=== PATIENT | female | born 1950 | race Caucasian/White ===

== ENCOUNTER 2018-09-13 06:13 | Day surgery (SDC) ==
[2018-09-13] MEDS: BETADINE OPTH PREP OP PRN ×2 (06:20→07:36)
[2018-09-13] MEDS: TETRACAINE 0.5% UNIT-DOSE OP PRN ×2 (06:20→07:35)
[2018-09-13] MEDS: CYCLOGYL 2% OPTH OP PRN ×3 (06:21→06:32)
[2018-09-13] MEDS ORDERED: BSS WITH EPINEPHRINE OP ONE (06:30)
[2018-09-13] MEDS ORDERED: ZOFRAN 4 MG/2 ML IVP ONE (06:30)
[2018-09-13] MEDS ORDERED: LIDOCAINE 1%/PHENYLEPHRINE 1.5% BSS (SURGERY) INTRAOCULA ONE (06:30)
[2018-09-13] MEDS ORDERED: DEX-MOXI-KETOR OPTH INJ 1/0.5/0.4 MG/ML IO ONE (06:30)
[2018-09-13 06:39] VITALS: TEMP 97.6
[2018-09-13] MEDS ORDERED: ZOFRAN 4 MG/2 ML ONE (07:45)
[2018-09-13] MEDS ORDERED: SUBLIMAZE ONE (07:45)
[2018-09-13] MEDS ORDERED: VERSED ONE (07:45)
[2018-09-13 08:36] VITALS: BP 118/65
== END 2018-09-13 08:29 | disposition home or self-care (01) ==
LOC: SURG 06:13
PROVIDERS: ATTEND Ophthalmology
DX: H25.811 Combined forms of age-related cataract, right eye (principal)

== ENCOUNTER 2018-09-27 08:02 | Day surgery (SDC) ==
[2018-09-27] MEDS: TETRACAINE 0.5% UNIT-DOSE OP PRN ×2 (08:35→09:35)
[2018-09-27] MEDS: BETADINE OPTH PREP OP PRN ×2 (08:36→09:35)
[2018-09-27] MEDS: CYCLOGYL 2% OPTH OP PRN ×3 (08:42→08:52)
[2018-09-27] MEDS ORDERED: BSS WITH EPINEPHRINE OP ONE (09:10)
[2018-09-27] MEDS ORDERED: LIDOCAINE 1%/PHENYLEPHRINE 1.5% BSS (SURGERY) INTRAOCULA ONE (09:10)
[2018-09-27] MEDS ORDERED: DEX-MOXI-KETOR OPTH INJ 1/0.5/0.4 MG/ML IO ONE (09:10)
[2018-09-27] MEDS ORDERED: ZOFRAN 4 MG/2 ML IVP ONE (09:10)
[2018-09-27] MEDS ORDERED: SUBLIMAZE ONE (09:43)
[2018-09-27] MEDS ORDERED: ZOFRAN 4 MG/2 ML ONE (09:43)
[2018-09-27] MEDS ORDERED: VERSED ONE (09:43)
[2018-09-29 06:31] VITALS: TEMP 98.6
[2018-09-29 15:42] VITALS: BP 132/676
== END 2018-09-27 10:30 | disposition home or self-care (01) ==
LOC: SURG 08:02
PROVIDERS: ATTEND Ophthalmology
DX: H25.812 Combined forms of age-related cataract, left eye (principal)